=== PATIENT | male | born 2000 | race Two or more races ===

== ENCOUNTER 2024-08-10 04:27 | Emergency (ER) | payer OTHER ==
[~2024-08-10] VITALS: Ht 172.7 cm; Wt 86.2 kg
[2024-08-10] MEDS ORDERED: KETOROLAC TROMETHAMINE 60 MG VIAL IM STA (05:51)
[2024-08-10] MEDS ORDERED: ORPHENADRINE CITRATE 30 MG/ML AMPUL IM STA (05:51)
[2024-08-10] MEDS ORDERED: ORPHENADRINE CITRATE 30 MG/ML AMPUL ONE (06:06)
[2024-08-10] MEDS ORDERED: KETOROLAC TROMETHAMINE 60 MG VIAL IM ONE (06:07)
== END 2024-08-10 07:21 | disposition home or self-care (01) ==
LOC: ER 04:27
DX: G89.11 Acute pain due to trauma (principal); M54.89 Other dorsalgia; M79.604 Pain in right leg